=== PATIENT | male | born 1955 | race Caucasian/White ===

== ENCOUNTER → 2022-04-07 07:58 | Outpatient (BNVA) | payer OTHER, SELFPAY | PROVIDERS: Visit Provider Internal Medicine | DX: S93.402A Sprain of unspecified ligament of left ankle, initial encounter (principal); X50.1XXA Overexertion from prolonged static or awkward postures, initial encounter | CPT/HCPCS: 73610; 99203 ==

== ENCOUNTER → 2024-07-29 12:38 | Outpatient (BNVA) | payer OTHER, SELFPAY | PROVIDERS: Visit Provider Registered Nurse | DX: S39.012A Strain of muscle, fascia and tendon of lower back, initial encounter (principal); X50.0XXA Overexertion from strenuous movement or load, initial encounter | CPT/HCPCS: 99203 ==

== ENCOUNTER → 2024-07-31 14:26 | Outpatient (BNVA) | payer OTHER, SELFPAY | PROVIDERS: Visit Provider Physician Assistant Medical | DX: S39.012A Strain of muscle, fascia and tendon of lower back, initial encounter (principal); X50.0XXA Overexertion from strenuous movement or load, initial encounter; M54.16 Radiculopathy, lumbar region | CPT/HCPCS: 72110; 99213 ==

== ENCOUNTER → 2024-08-05 14:27 | Outpatient (BNVA) | payer OTHER, SELFPAY | PROVIDERS: Visit Provider Physician Assistant Medical | DX: S39.012A Strain of muscle, fascia and tendon of lower back, initial encounter (principal); X50.0XXA Overexertion from strenuous movement or load, initial encounter; M53.3 Sacrococcygeal disorders, not elsewhere classified | CPT/HCPCS: 99213 ==

== ENCOUNTER → 2024-08-08 13:35 | Outpatient (BNVA) | payer OTHER, SELFPAY | PROVIDERS: Visit Provider Physician Assistant | DX: S39.012A Strain of muscle, fascia and tendon of lower back, initial encounter (principal); W50.0XXA Accidental hit or strike by another person, initial encounter | CPT/HCPCS: 99214 ==

== ENCOUNTER → 2024-08-11 14:20 | Outpatient (BNVA) | payer OTHER, SELFPAY | PROVIDERS: Visit Provider Physician Assistant Medical | DX: S39.012D Strain of muscle, fascia and tendon of lower back, subsequent encounter (principal); X50.0XXD Overexertion from strenuous movement or load, subsequent encounter | CPT/HCPCS: 99213 ==

== ENCOUNTER → 2024-08-18 09:29 | Outpatient (BNVA) | payer OTHER, SELFPAY | PROVIDERS: PCP Internal Medicine; Visit Provider Physician Assistant Medical | DX: S39.012D Strain of muscle, fascia and tendon of lower back, subsequent encounter (principal); X50.0XXD Overexertion from strenuous movement or load, subsequent encounter; M53.3 Sacrococcygeal disorders, not elsewhere classified | CPT/HCPCS: 99213 ==

== ENCOUNTER → 2024-09-01 09:30 | Outpatient (BNVA) | payer OTHER, SELFPAY | PROVIDERS: PCP Internal Medicine; Visit Provider Physician Assistant Medical | DX: M54.50 Low back pain, unspecified (principal) | CPT/HCPCS: 99213 ==

== ENCOUNTER 2024-09-02 20:11 | Outpatient (REF) | payer OTHER, SELFPAY ==
--- NOTE | ~2024-09-02 | MR_ITS ---
EXAMINATION: MR LUMBAR SPINE WITHOUT CONTRAST CLINICAL INFORMATION: Weakness, numbness and pain in left lower extremity. COMPARISON: None available. TECHNIQUE: MRI of the lumbar spine was obtained using routine sequences without contrast. FINDINGS: Last rib-bearing vertebra labeled T12. No bone marrow STIR signal abnormality. There is a 10 mm intrinsic hyperintense T1 bone lesion in the posterior inferior left lateral aspect vertebral body of L1 likely intraosseous hemangioma. Marginal osteophyte formation and disc desiccation at L5-S1 and to a lesser extent L4-5. Multilevel marginal osteophyte formation T11-12 to L5-S1. Conus medullaris ends at pedicle of L1 with normal signal. T12-L1: No central spinal canal or neuroforamina stenosis. L1-2: Broad-based disc bulging. No compression upon neural elements. L2-3: Broad-based disc bulging. No compression upon neural elements. L3-4: Left subarticular disc herniation with caudal migration beneath the posterior longitudinal ligament encroaching the left L4 exiting nerve roots.. Facet joint hypertrophy. Bilateral neuroforamina stenosis encroaching the exiting nerve roots. L4-5: Broad-based disc bulging. Facet joint and ligamentum flavum hypertrophy. Reduced AP diameter of the thecal sac. Bilateral neuroforamina stenosis compressing the exiting nerve roots. L5-S1: Request disc bulging. Facet joint hypertrophy. Bilateral neuroforamina stenosis encroaching likely compressing the exiting nerve roots more conspicuous on the left side. Fatty atrophy of the right lower lumbar muscles. No prevertebral compartment hematoma, mass or fluid collection. MR/MR lumbar spine wo con IMPRESSION: Left subarticular extruded disc L3-4 encroaching left L4 nerve root on its lateral recess. Multilevel lumbar spondylosis L3-4 to L5-S1 encroaching likely compressing the exiting nerve roots of L3-L4 and L5. Electronically signed by: Herman Liang MD 09/03/2024 10:28 AM EDT
--- OUTSIDE RECORDS SUMMARY | 2024-09-02 20:16 | XMS_ITS | Encounter Summary ---
Author Organization [facility] Address [address] [place] [address] Care Team Providers Care Software Database Architect Name Role Phone Jamel Hartman MD Primary Care Provider [phone] Encounter Details Date Type Department Care Team (Late st Contact Info) Description 05/15/2024 Scanned Document [facility] [address] [phone] Maury Gaona MD [address] [place] [phone] Social History Tobacco Use Types Packs/Day Years Used Date Smoking Tobacco: Never Assessed Sex and Gender Information Value Date Recorded Sex Assigned at Not on file Gender Identity Not on file Sexual Orientation Not on file documented as of this encounter Plan of Treatment Upcoming Encounters Date Type Department Care Team (Late st Contact Info) Description 10/21/2024 9:00 AM EDT Office Visit Orthopedic [address] [place] [address] Maury Gaona MD [address] [place] [phone] documented as of this encounter Visit Diagnoses Not on filedocumented in this encounter Care Teams Software Database Architect Relationship Specialty Start Date End Date Jamel Hartman MD [address] [place] [address] [address] [place] [address] PCP - General 04/08/24 documented as of this encounter
--- OUTSIDE RECORDS SUMMARY | 2024-09-02 20:16 | XMS_ITS | Clinical Summary ---
Author Organization [facility] Address [address] [place] [address] Care Team Providers Care Community Service Representative Name Role Phone Jamel Hartman MD Primary Care Provider Allergies No known active allergies Encounters Date Type Department Care Team Description 08/26/2024 9:00 AM EDT [place] [address] Maury Gaona MD Tarsal tunnel syndrome of left side (Primary Dx); Hallux valgus (acquired), left foot 06/24/2024 9:00 AM EST Office Visit [facility] [place] [phone] Maury Gaona MD Pain in left ankle and joints of left foot (Primary Dx) from Last 3 Months Social History Tobacco Use Types Packs/Day Years Used Date Smoking Tobacco: Never Assessed Sex and Gender Information Value Date Recorded Sex Assigned at Not on file Gender Identity Not on file Sexual Orientation Not on file Plan of Treatment Upcoming Encounters Date Type Department Care Team ([facility] st Contact Info) Description 10/21/2024 9:00 AM EDT Office Visit Orthopedic [address] [address] Maury Gaona MD [address] [place] [address] Health Maintenance Due Date Last Done Comments Hepatitis C Virus Screening 1955 DTaP/Tdap/Td Vaccines (1 - Tdap) 01/16/1976 Colonoscopy 2002 Pneumococcal Vaccines 50+ (1 of 1 - PCV) 2007 Zoster (Shingles) Vaccine (1 of 2) 2007 Influenza Vaccine 01/10/2024 COVID-19 Vaccine ( - 2023-2 5 season) 2024 RSV Vaccine 60 years and old er and Patients (1 - 1-dose 75+ series) 01/16/2032 Hepatitis B Vaccines Aged Out No long er eligible based on patient's age to complete this topic Care Teams Community Service Representative Relationship Specialty Start Date End Date Jamel Hartman MD [address] [facility] 9 [place] [address] PCP - General 04/08/24
--- OUTSIDE RECORDS SUMMARY | 2024-09-02 20:16 | XMS_ITS | Encounter Summary ---
Author Organization [facility] Address [address] [place] [address] Care Team Providers Care Carton Machine Operator Name Role Phone Jamel Hartman MD Primary Care Provider [phone] Reason for Visit * Reason Comments Follow-up DISCUSS SX Encounter Details Date Type Department Care Team ([facility] st Contact Info) Description 08/26/2024 9:00 AM EDT Office Visit Orthopedic [address] [address] Maury Gaona MD [address] [place] [address] Tarsal tunnel syndrome of left side (Primary Dx); Hallux valgus (acquired), left foot Social History Tobacco Use Types Packs/Day Years Used Date Smoking Tobacco: Never Assessed Sex and Gender Information Value Date Recorded Sex Assigned at Not on file Gender Identity Not on file Sexual Orientation Not on file documented as of this encounter Progress Notes * Maury Gaona MD - 08/26/2024 9:00 AM EDT Images from the original note were not included. [facility] [address] [place] [address] [facility] [address] [phone] Encounter Date: 08/26/2024 No diagnosis found. Assessment & Plan Robby Burton is a 69 y.o. male who presents with persistent pain and functional limitations following a failed flatfoot reconstruction surgery performed approximately 18 months ago. He reports significant improvement in ankle pain and reduction in falls after reducing work hours and discontinuing physical therapy due to a back injury. However, he experiences intermittent severe pain, particularly when the foot is tweaked, and has developed a prominent bunion. Examination reveals tenderness along the posterior tibial tendon, a prominent medial cuneiform staple, and signs suggestive of tarsal tunnel syndrome. Recommendations were made for hardware removal, potential revision of the flatfoot reconstruction including potential removal of the medial cuneiform staple and addressing the bunion - lapidus procedure, and consideration of tarsal tunnel release as part of surgical intervention. Patient reports a back injury with scheduled MRI for further evaluation. Follow up in 4 to 6 weeks for evaluation of his progress with his currently active low back issue. It is agreed that we should not proceed with revision flatfoot reconstruction until he has this clinically under control. Part of his symptomatology today is neuritic in nature, consistent on exam with tarsal tunnel symptomatology. It is unclear to me how much of his neuritic pain could be related to low back pathology. He may benefit from an EMG, diagnostically. We have discussed this, but have not ordered it today, in deference to his clinical care team managing his back. History of Present Illness: Robby Burton is a 69 y.o. male who presents today for a follow up of his L foot pain. 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 This foot has continued in consistent pain of posterior tibial tendon insertion. His pain pattern today remains posterior medial, but also has a dysesthetic pain pattern. He has a positive tarsal tunnel compression test on today's exam. He is also tender along his posterior tibial tendon. He was last seen by me on 06/24/2024 and at that time we discussed conservative surgical treatment options. He's technically a candidate for triple arthrodesis for revision to alleviate his posterior tibial tendon insertional pain. He has persistent peritalar subluxation and associated lateral sinus Tarsi impingement pain. Triple arthrodesis would be a reasonable surgical approach for his failed flatfoot reconstruction. He has an ipsilateral hallux valgus deformity, also symptomatic. The previous medial posterior tibial tendon incision that would require reutilization. He reports persistent pain and intermittent shooting pain in the foot, particularly when the foot is tweaked or under pressure.The patient has been off work since 07/26/2024, due to back issues and has noticed a reduction in ankle pain and falls since reducing his work hours. He experiences sensitivity and pressure over the medial cuneiform staple site, which affects his ability to wear certain shoes. The patient also reports a bunion that has worsened over the past year, causing additional discomfort. He expresses concern about the staple and its potential role in his symptoms. The patient is considering surgical options, including staple removal and bunion correction, but is hesitant about further fusion procedures.He is also experiencing back pain and has an MRI scheduled for his lower back which led him to discontinuing physical therapy. His goal is to be able to return to gardening, yard work, golf, hiking, and biking. Physical Exam On exam, he demonstrates fairly symmetric post-penetral valgus, and trauma left side compared with right. He demonstrates tenderness to palpation that is more in keeping with tarsal tunnel symptomatology than posterior tibial tendon symptomatology. He is consciously aware of his dynamic gait propulsion. Bunion pain, first MTP joint ROM is from limited to five degrees. dorsiflexion, plantar flexion free from crepitence. He has component of medial column instability of the manual saggital transitional exam. He's non-tender to palpitations, sinus tarsi, and is tender to palpitation on the tarsaltunnel. He's able to actively invert against resistance. His medial cuneiform staple is palpably prominent and dynamically symptomatic. Positive tarsal tunnel compression test. He has dysesthesia along the medial plantar nerve distribution with applied posterior medial ankle pressure. Procedure Procedures Imaging Imaging Impression: no imaging obtained today . Past Medical History No past medical history on file. No past surgical history on file. No family history on file. Medication List No current outpatient medications on file. Allergies No Known Allergies Sreedhar Rees, hereby attest that I have served as a scribe for Dr. Maury Gaona, duringthis visit. I understand the importance of accurate and timely documentation in patient care and confirm that all information recorded during the consultation was completed to the best of my ability under the supervision of Dr. Gaona. Maury Gaona MD documented in this encounter Plan of Treatment Upcoming Encounters Date Type Department Care Team (Late st Contact Info) Description 10/21/2024 9:00 AM EDT Office Visit [facility] [address] Maury Gaona MD [address] [place] [address] documented as of this encounter Visit Diagnoses Diagnosis Tarsal tunnel syndrome of left side- Primary Hallux valgus (acquired), left foot documented in this encounter Care Teams Carton Machine Operator Relationship Specialty Start Date End Date Jamel Hartman MD [address] [facility] [address] [place] [address] PCP - General 04/08/24 documented as of this encounter
--- OUTSIDE RECORDS SUMMARY | 2024-09-02 20:16 | XMS_ITS | Encounter Summary ---
Author Organization [facility] Address [address] [place] [address] Care Team Providers Care Mortgage Funder Name Role Phone Jamel Hartman MD Primary Care Provider [phone] Encounter Details Date Type Department Care Team (Late st Contact Info) Description 05/07/2024 Scanned Document [facility] [address] Maury Gaona MD [address] [place] [address] Social History Tobacco Use Types Packs/Day Years Used Date Smoking Tobacco: Never Assessed Sex and Gender Information Value Date Recorded Sex Assigned at Not on file Gender Identity Not on file Sexual Orientation Not on file documented as of this encounter Plan of Treatment Upcoming Encounters Date Type Department Care Team (Late st Contact Info) Description 10/21/2024 9:00 AM EDT Office [place] [address] Maury Gaona MD [address] [place] [address] documented as of this encounter Visit Diagnoses Not on filedocumented in this encounter Care Teams Mortgage Funder Relationship Specialty Start Date End Date Jamel Hartman MD [address] [place] [address] [address] [place] [address] PCP - General 04/08/24 documented as of this encounter
--- OUTSIDE RECORDS SUMMARY | 2024-09-02 20:16 | XMS_ITS ---
Author Name [facility] Organization Unknown Problems Problem Status Onset Date Problem Type Date of Resoluti on Source Pain in left ankle and joints of left foot active EncounterDiagnosisAct HHCCT Encounters Encounter Type Encounter Reason Primary Diagnosis Location Date Ambulatory Follow-up Follow-up [facility] 08/26/2024 Ambulatory Pain in left ankle and joints of left foot Pain in left ankle and joints of left foot [facility] 06/24/[address] 04/08/[address] [facility] 04/08/2024 Ambulatory Pain in left ankle and joints of left foot Pain in left ankle and joints of left foot [facility] 04/08/2024 Care Team Organization Name Specialty Phone Email Start Date End Da te [facility] Primary Care 04/11/2024 [facility] Primary Care 04/08/2024 [facility] 03/20/2024
== END 2024-09-02 20:12 | disposition home or self-care (01) ==
LOC: HO.MRI 20:11
PROVIDERS: PCP Internal Medicine; Visit Provider Internal Medicine
DX: M54.50 Low back pain, unspecified (principal)
CPT/HCPCS: 72148

== ENCOUNTER → 2024-09-02 20:30 | Outpatient (BNV) | payer OTHER, SELFPAY | PROVIDERS: PCP Internal Medicine; Visit Provider Radiology Diagnostic Radiology | DX: M47.817 Spondylosis without myelopathy or radiculopathy, lumbosacral region (principal) | CPT/HCPCS: 72148 ==

== ENCOUNTER → 2024-09-15 10:04 | Outpatient (BNVA) | payer OTHER, SELFPAY | PROVIDERS: PCP Internal Medicine; Visit Provider Physician Assistant Medical | DX: M51.26 Other intervertebral disc displacement, lumbar region (principal) | CPT/HCPCS: 99213 ==

== ENCOUNTER 2024-09-17 10:00 | Outpatient (RCR) | payer OTHER, SELFPAY ==
--- NOTE | 2024-08-25 08:52 | MHC.PT.EP ---
[facility] [place] [facility] [place] [facility] [place] [facility] [address] Florentin Kelly [address] [phone] F: [phone] F: [phone] F: [phone] F: [phone] Physical Therapy Plan of Care Date of Evaluation: 08/25/24 Date of Surgery: Diagnosis: This is a 69 yo male presenting to skilled PT with a script for low back pain. Assessment: This is a 69 yo male presenting to skilled PT with a script for low back pain. Patient reporting that he was pushing and pulling at work a little over a month ago when he strained his back. Pain increases with bending forward, twisting, transfers. Pain does not improve with anything. He has been using muscle relaxers, ibuprofen and heat at home. Patient is being followed by [facility] work connection and he he states that they will be scheduling an MRI. He was given a HEP and states that he does not do them. Pain is located central, radiates to the L side low back. Occasionally, he gets pain that radiates posteriorly down the L leg but stops before the knee. Pain is described as constant ache but can be sharp as well. He did mention that yesterday he was lifting and placing boxes at his home yesterday and this exacerbated his pain more. Assessment reveals pain that ranges from up to a 10/10 at the worst. Patient demos decreased lumbar ROM, strength of B LE's, core and back, TTP at lumbar soft tissues and impaired posture with forward head and rounded shoulders. Based on functional limitations, impaired QOL and pain tolerance patient is a good candidate for skilled PT 2x/wk for 4wks. Frequency and Duration: The patient will be seen 2x/wk for 4wks Short Term Goals: Pt will demonstrate improved postural awareness and understanding of core engagement with supine and standing tasks without cues throughout session to improve overall back safety in 2 weeks. Pt will demonstrate centralization of sx in 2 weeks. Pt will continue to reinforce precautions, sitting, standing and ADL modifications with proper body mechanics in 2 wks. Correction Goals: Pt will demonstrate improved outcome measure by 5 points in 4 weeks for improved functional mobility. Pt will demonstrate ability to bend and lift WNL min to no pain for household tasks in 4 wks. Pt will be I in HEP and compliant in 4wks Treatment Plan: Modalities to reduce pain, spasms and effusion. Manual therapy to restore motion and function. Therapeutic exercise to improve strength and flexibility. Neuromuscular re-education for posture and balance. Therapeutic activities to return to functional activities of daily living. Electronically signed by: Blanca Ervin, PT Please sign and return to therapist. Thank you for your referral.
--- NOTE | 2024-10-16 10:05 | MHC.PT.DC ---
[facility] [place] [facility] [place] [facility] [place] [facility] [address] Florentin Kelly [address] [phone] F: [phone] F: [phone] F: [phone] F: [phone] Physical Therapy Discharge Report Diagnosis: This is a 69 yo male presenting to skilled PT with a script for low back pain. Date of Surgery: Date of Evaluation: 08/25/24 Date of Discharge: 10/16/24 Treatments to Date: 6 Cancellations to Date: 0 No Shows to Date: 0 Discharge Status: Patient Elected to Stop Recommend MD Follow-up Discharge Summary: 09/17: Today we talked about how he felt with his HEP and PT POC. He feels I in his program and ready to transition to self care at this time while he waits for his appointment and PT is in agreement. Plan to DC next session. He would like to use the stepper last next session (he feels like this was helpful last time but I tried to explain to him that is was most likely due to extension based exercises. He has a hard time excepting education. Pt no showed to his last appointment. I closed his chart after 30 days of not being at the facility. Electronically signed by: Please sign and return to therapist. Thank you for your referral.
== END 2024-10-16 10:06 | disposition home or self-care (01) ==
LOC: HO.PTCHIC 10:00
PROVIDERS: PCP Internal Medicine; Visit Provider Physician Assistant Medical
DX: S39.012D Strain of muscle, fascia and tendon of lower back, subsequent encounter (principal); X58.XXXD Exposure to other specified factors, subsequent encounter
CPT/HCPCS: 97110; 97162

== ENCOUNTER → 2024-10-02 14:54 | Outpatient (BNVA) | payer OTHER, SELFPAY | PROVIDERS: PCP Internal Medicine; Visit Provider Physician Assistant Medical | DX: S39.012D Strain of muscle, fascia and tendon of lower back, subsequent encounter (principal); X50.0XXD Overexertion from strenuous movement or load, subsequent encounter | CPT/HCPCS: 99213 ==